=== PATIENT | male | born 1985 | race Caucasian/White ===

== ENCOUNTER 2016-06-17 18:38 | Emergency (ER) | payer SELFPAY ==
--- NOTE | 2016-06-17 18:43 | ER Document Report ---
ED Medical Screen (RME) - General Stated Complaint: TOOTHACHE Notes: Acute exacerbation of chronic tooth pain increased over the last 24 hours I greeted and performed a rapid initial assessment of this patient. Comprehensive ED assessment and evaluation of the patient, analysis of test results and completion of the medical decision making process will be conducted by additional ED providers.
[2016-06-17 18:46] VITALS: BP 145/75
--- NOTE | 2016-06-17 19:24 | ER Document Report ---
ED Oral Problem - General Chief Complaint: Toothache Stated Complaint: TOOTHACHE Time seen by provider: 19:15 Mode of Arrival: Ambulatory Information source: Patient TRAVEL OUTSIDE OF THE [place] IN LAST 30 DAYS: No - HPI Patient complains to provider of: Toothache Onset: Last week - pt with several day h/o R lower molar pain. Denies fever - Related Data Allergies/Adverse Reactions: No Known Allergies Allergy (Unverified 06/17/16 18:45) Past Medical History - General Information source: Patient - Social History Smoking Status: Current Every Day Smoker Cigarette use (# per day): Yes Chew tobacco use (# tins/day): No Smoking Education Provided: Yes Frequency of alcohol use: None Drug Abuse: None Family History: None Patient has suicidal ideation: No Patient has homicidal ideation: No Renal/ Medical History: Denies: Hx Peritoneal Dialysis Review of Systems - Review of Systems Constitutional: No symptoms reported EENT: See HPI, Dental problem Cardiovascular: No symptoms reported Respiratory: No symptoms reported -: Yes All other systems reviewed and negative Physical Exam - Vital signs Vitals: Temp Pulse Resp BP Pulse Ox 97.6 F 88 18 145/75 H 100 06/17/16 18:45 06/17/16 18:45 06/17/16 18:45 06/17/16 18:45 06/17/16 18:45 - General General appearance: Appears well In distress: None - HEENT Mouth/Lips: Other - R lower molar with large cavity and some gingivval erythema Course - Vital Signs Vital signs: Temp Pulse Resp BP Pulse Ox 97.6 F 88 18 145/75 H 100 06/17/16 18:45 06/17/16 18:45 06/17/16 18:45 06/17/16 18:45 06/17/16 18:45 Discharge - Discharge Clinical Impression: Dentalgia Condition: Stable Disposition: HOME, SELF-CARE Instructions: [facility], Penicillin V K ([facility]), Toothache ([facility]), Oral Narcotic Medication ([facility]) Additional Instructions: rest , take meds as prescribed , return if worse Prescriptions: Amoxicillin Trihydrate [Amoxil 500 mg Capsule] 500 mg PO TID #30 capsule Tramadol HCl 50 mg PO ASDIR PRN #14 tablet PRN Reason:
== END 2016-06-17 19:44 | disposition home or self-care (01) ==
LOC: ER 18:38
DX: K08.9 Disorder of teeth and supporting structures, unspecified (principal); F17.210 Nicotine dependence, cigarettes, uncomplicated
CPT/HCPCS: 99282

== ENCOUNTER 2018-02-06 16:02 | Emergency (ER) | payer SELFPAY ==
[2018-02-06] MEDS ORDERED: DIPH/PERTUSS(ACELL)/TETANUS VAC/PF 0.5 ML SYR (>=10YO) IM ONE (17:17)
--- NOTE | 2018-02-06 17:18 | ER Document Report ---
ED Medical Screen (RME) - General Chief Complaint: Puncture Wound to Foot Stated Complaint: WRIST PAIN, FOOT PAIN Time Seen by Provider: 02/06/18 17:16 TRAVEL OUTSIDE OF THE [place] IN LAST 30 DAYS: No - HPI Notes: 02/06/18 17:17 Stepped on a nail and fell hitting his left wrist - Related Data Allergies/Adverse Reactions: No Known Allergies Allergy (Verified 02/06/18 17:15) Past Medical History Renal/ Medical History: Denies: Hx Peritoneal Dialysis - Immunizations Hx Diphtheria, Pertussis, Tetanus Vaccination: No Review of Systems - Review of Systems Constitutional: Other - Foot pain wrist pain Physical Exam - Vital signs Vitals: Temp Pulse Resp BP Pulse Ox 97.8 F 100 14 129/82 H 99 02/06/18 16:07 02/06/18 16:07 02/06/18 16:07 02/06/18 16:07 02/06/18 16:07 - Respiratory Respiratory status: No respiratory distress Chest status: Nontender Breath sounds: Normal, Rales - Cardiovascular Rhythm: Regular Heart sounds: Normal auscultation Course - Vital Signs Vital signs: Temp Pulse Resp BP Pulse Ox 97.8 F 100 14 129/82 H 99 02/06/18 16:07 02/06/18 16:07 02/06/18 16:07 02/06/18 16:07 02/06/18 16:07
--- NOTE | 2018-02-06 17:49 | RADIOLOGY REPORT (SQ) ---
EXAM DESCRIPTION: WRIST LEFT 3 VIEWS COMPLETED DATE/TIME: 02/06/2018 5:33 pm REASON FOR STUDY: nail in foot fall wrist apin COMPARISON: None. NUMBER OF VIEWS: Three views. TECHNIQUE: AP, lateral, and oblique radiographic images acquired of the left wrist. LIMITATIONS: None. FINDINGS: MINERALIZATION: Normal. BONES: No acute fracture or dislocation. No worrisome bone lesions. Normal alignment. SOFT TISSUES: No soft tissue swelling. No foreign body. OTHER: No other significant finding. IMPRESSION: NEGATIVE STUDY OF THE LEFT WRIST. NO RADIOGRAPHIC EVIDENCE OF ACUTE INJURY. TECHNICAL DOCUMENTATION: JOB ID: [id number] [employer]- All Rights Reserved Reading location - IP/workstation name: [email or web address]
--- NOTE | 2018-02-06 17:50 | RADIOLOGY REPORT (SQ) ---
EXAM DESCRIPTION: FOOT LEFT COMPLETE COMPLETED DATE/TIME: 02/06/2018 5:33 pm REASON FOR STUDY: nail in foot fall wrist apin COMPARISON: None. NUMBER OF VIEWS: Three views. TECHNIQUE: AP, lateral and oblique radiographic images acquired of the left foot. LIMITATIONS: None. FINDINGS: MINERALIZATION: Normal. BONES: No acute fracture or dislocation. No worrisome bone lesions. Cortical irregularity of the me dial malleolus likely represent sequela of remote trauma. JOINTS: No effusions. SOFT TISSUES: No soft tissue swelling. No foreign body. No subcutaneous gas. OTHER: No other significant finding. IMPRESSION: No evidence of acute or subacute osseous injury. No retained radiopaque foreign body. TECHNICAL DOCUMENTATION: JOB ID: [id number] [employer]- All Rights Reserved Reading location - IP/workstation name: [email or web address]
[2018-02-06] MEDS ORDERED: CIPROFLOXACIN HCL 500 MG TABLET PO ONE (18:37)
--- NOTE | 2018-02-06 18:41 | ER Document Report ---
ED Wound - General Chief Complaint: Puncture Wound to Foot Stated Complaint: WRIST PAIN, FOOT PAIN Time Seen by Provider: 02/06/18 17:16 Mode of Arrival: Ambulatory Information source: Patient Notes: 32-year-old male presents to ED for complaint of pain to his left foot after he stepped on his nail and left wrist. He states the left wrist has been hurting for 2-3 months. He states one morning he woke up it was very swollen he does not know what he did do it. He states the foot has just been hurting for 2 days after he stepped on a nail that went through his tennis shoes. Patient is alert and oriented with pressures recorded and unlabored speaking in full sentences. The left foot is red and swollen. There is no drainage noted at this time. TRAVEL OUTSIDE OF THE [place] IN LAST 30 DAYS: No - HPI Patient complains to provider of: Puncture wound - Left bottom of the foot Occurred: Other - 2 days ago Onset/Duration: Persistent, Worse Quality of pain: Pressure, Sharp Severity: Severe Pain Level: 5 Context: Injury, Other - States the foot is from stepping on a nail at a worksite. He states the wrist pain is from a couple months ago he does not know what happened he just woke up with pain and swelling in his has been swollen since then and he has not able to move his thumb at this time. Associated Symptoms: Redness, Swelling - Related Data Allergies/Adverse Reactions: No Known Allergies Allergy (Verified 02/06/18 17:15) Past Medical History - General Information source: Patient - Social History Smoking Status: Current Every Day Smoker Cigarette use (# per day): Yes - Pack per day Chew tobacco use (# tins/day): No Smoking Education Provided: Yes - 4 minutes Frequency of alcohol use: None Drug Abuse: None Occupation: Construction/business support coordinator Lives with: Alone Family History: None Patient has suicidal ideation: No Patient has homicidal ideation: No - Past Medical History Cardiac Medical History: Reports: Hx Hypertension Pulmonary Medical History: Reports: None EENT Medical History: Reports: None Neurological Medical History: Reports: None Endocrine Medical History: Reports: None Renal/ Medical History: Reports: None Malignancy Medical History: Reports None GI Medical History: Reports: None Musculoskeletal Medical History: Reports None Skin Medical History: Reports Hx Cellulitis Psychiatric Medical History: Reports: None Traumatic Medical History: Reports: Hx Fractures, Hx Traumatic Brain Injury Infectious Medical History: Reports: None Past Surgical History: Reports: Hx Neurologic Surgery - Remove bleed from brain - Immunizations Immunizations up to date: Yes Hx Diphtheria, Pertussis, Tetanus Vaccination: Yes - 02/06/2018 Review of Systems - Review of Systems Constitutional: No symptoms reported EENT: No symptoms reported Cardiovascular: No symptoms reported Respiratory: No symptoms reported Gastrointestinal: No symptoms reported Genitourinary: No symptoms reported Male Genitourinary: No symptoms reported Musculoskeletal: Other - Left wrist pain from a couple months left foot pain from stepping on a nail 2 days ago which is now infected inflamed and red Skin: No symptoms reported Hematologic/Lymphatic: No symptoms reported Neurological/Psychological: No symptoms reported -: Yes All other systems reviewed and negative Physical Exam - Vital signs Vitals: Temp Pulse Resp BP Pulse Ox 97.8 F 100 14 129/82 H 99 02/06/18 16:07 02/06/18 16:07 02/06/18 16:07 02/06/18 16:07 02/06/18 16:07 Interpretation: Normal - General General appearance: Appears well, Alert - HEENT Head: Normocephalic, Atraumatic Eyes: Normal Pupils: PERRL - Respiratory Respiratory status: No respiratory distress Chest status: Nontender Breath sounds: Normal Chest palpation: Normal - Cardiovascular Rhythm: Regular Heart sounds: Normal auscultation Murmur: No - Abdominal Inspection: Normal Distension: No distension Bowel sounds: Normal Tenderness: Nontender Organomegaly: No organomegaly - Back Back: Normal, Nontender - Extremities General upper extremity: Normal inspection, Normal color, Normal temperature General lower extremity: Normal ROM, Normal temperature, Normal weight bearing. No: Catracho's sign Wrist: Tender, Limited ROM - States he has decreased movement to the left thumb for a couple months now. He states she has not followed up with anybody he first noticed the pain and swelling. Foot: Tender, Edema, No evidence of FB, Puncture wound, Other - Erythematous left foot swelling pain and infection to a puncture wound on the bottom of the foot. States he stepped on a nail that went through his tennis shoes 2 days ago - Neurological Neuro grossly intact: Yes Cognition: Normal Orientation: AAOx4 Aniyah Coma Scale Eye Opening: Spontaneous [place] Coma Scale Verbal: Oriented [place] Coma Scale Motor: Obeys Commands Aniyah Coma Scale Total: 15 Speech: Normal Motor strength normal: LUE, RUE, LLE, RLE Sensory: Normal - Psychological Associated symptoms: Normal affect, Normal mood - Skin Skin Temperature: Warm Skin Moisture: Dry Skin Color: Normal Location of irregularity: Extremities - Left foot Character of irregularity: Erythematous Irregularity with: Swelling, Tenderness, Warmth Course - Re-evaluation Re-evalutation: 02/06/18 20:37 Patient given a tetanus shot up in the pit area. He was also given Cipro in the emergency room for his cellulitis in formation to the left foot from where he stepped on a nail 2 days ago that went through his shoe. Patient was instructed to follow-up with orthopedics or a phytopathologist for this infection. X- ray to the left wrist was negative. He states he does not know what he did to this wrist he woke up one morning and it was painful and then it is again swelling. He states he has not been able to move his thumb properly for couple months. Patient was given a picture of the wrist as he thought that it was broken even after I had explained to him the results were negative. He was given a picture of the wrist x-ray. Patient was instructed to follow-up with orthopedics and podiatry. - Vital Signs Vital signs: Temp Pulse Resp BP Pulse Ox 97.8 F 73 16 154/84 H 99 02/06/18 18:41 02/06/18 18:41 02/06/18 18:41 02/06/18 18:41 02/06/18 18:41 - Diagnostic Test Radiology reviewed: Image reviewed, Reports reviewed Discharge - Discharge Clinical Impression: Puncture wound of foot excluding toes with infection Qualifiers: Encounter type: initial encounter Laterality: left Qualified Code(s): S91.332A - Puncture wound without foreign body, left foot, initial encounter Condition: Stable Disposition: HOME, SELF-CARE Additional Instructions: Puncture Wound You have a puncture wound. Because these wounds often penetrate deeply beneath the skin, you must observe them carefully for complications. The wound has been examined for retained foreign material and for damage to tendons and nerves. The area should be rested and elevated for 24 hours. Then you can use the injured part -- if moving it is painfree. Punctures of the hand or foot may require splinting or crutches. The dressing should be changed daily until the wound is healed. Watch for signs of infection. Call the doctor immediately if redness, swelling, warmth, increasing pain, or wound drainage occur. If you develop numbness, persistent bleeding, or inability to move the injured area, please return for prompt re-evaluation. Ciprofloxacin You have been given an antibacterial agent, ciprofloxacin (Cipro). This medicine is not related to the penicillins, sulfas, cephalosporins, or tetracyclines. It is often given to patients who are allergic to these drugs. It has been chosen for you either because other drugs are not appropriate, or because of the nature of your problem. Cipro should not be taken with antacids, as these can decrease its effectiveness. It can be taken without regard to meals. CIPRO SHOULD NOT BE TAKEN BY CHILDREN, NURSING WOMEN, OR WOMEN. Although Cipro is usually well-tolerated, common side effects can include nausea and diarrhea. Contact your doctor if you experience any unusual symptoms while on this medication, such as joint pain or swelling, shortness of breath, wheezing, faintness, or hives. Epsom Salt Soaks Soak the wound area in a container of warm epsom salt water. If you can't get the wound area into a bucket or landaevrde, use a folded towel soaked in the epsom salt solution and apply to the area. Use clean hot tap water (about the temperature of a very warm bath), mixing in about one (1) teaspoon for every pint of water. Two gallon --> 16 teaspoons Epsom Salts One gallon --> 8 teaspoons Epsom Salts Two quarts --> 4 teaspoons Epsom Salts One quart --> 2 teaspoons Epsom Salts Soak the wound for about 20 minutes while gently moving it around in the water. Repeat this four (4) times a day. FOLLOW-UP CARE: If you have been referred to a physician for follow-up care, call the physician s office for an appointment as you were instructed or within the next two days. If you experience worsening or a significant change in your symptoms, notify the physician immediately or return to the Emergency Department at any time for re-evaluation. Prescriptions: Ciprofloxacin HCl [Cipro 500 mg Tablet] 500 mg PO BID #20 tablet Forms: Elevated Blood Pressure, Smoking Cessation Education Referrals: JON LEI MD [ACTIVE STAFF] - Follow up as needed DAVID QUINONES DPM [ACTIVE STAFF] - Follow up as needed
[2018-02-06 18:45] VITALS: BP 154/84
[2018-02-06] MEDS ORDERED: HYDROCODONE/ACETAMINOPHEN 5-325 MG (6 TAB/ER DISP) PO PRN (18:45)
== END 2018-02-06 18:49 | disposition home or self-care (01) ==
LOC: ER 16:02
DX: S91.332A Puncture wound without foreign body, left foot, initial encounter (principal); L03.116 Cellulitis of left lower limb; W45.0XXA Nail entering through skin, initial encounter; M25.532 Pain in left wrist; M25.432 Effusion, left wrist; I10 Essential (primary) hypertension; F17.210 Nicotine dependence, cigarettes, uncomplicated; Z71.6 Tobacco abuse counseling; Z23 Encounter for immunization
CPT/HCPCS: 90471; 90715; 99283; 99406